=== PATIENT | female | born 1995 | race Caucasian/White ===

== ENCOUNTER 2020-01-10 15:20 | Emergency (ER) | payer OTHER ==
[~2020-01-10] VITALS: Ht 160 cm; Wt 58.5 kg
[2020-01-10 15:29] VITALS: BP 105/63
--- NOTE | 2020-01-10 16:00 | NUR ---
C/O VAGINAL BLEEDING AND CRAMPING WITH X THIS AM. A1, UNKNOWN WEEKS OF . DENIES N/V. PT ALERT AND AWAKE. AMBULATORY WITH STEADY GAIT. HX: ANEMIA, RHEUMATOID ARTHRITIS RX: HUMIRA, IRON
--- NOTE | 2020-01-10 16:00 | NUR ---
LMP APPROX AUGUST
--- NOTE | 2020-01-10 16:03 | NUR ---
Ultrasound at bedside.
--- NOTE | 2020-01-10 16:04 | NUR ---
us at bedside
[2020-01-10 16:17] LABS: BASOPHILS # (AUTO) 0.1 K/uL (0.00-0.22); BASOPHILS % (AUTO) 0.7 % (0.0-2.0); EOSINOPHILS # (AUTO) 0.6 K/uL (0-0.4); EOSINOPHILS % (AUTO) 4.8 % (0.0-4.0); HEMATOCRIT 32.9 % (36-48); HEMOGLOBIN 10.1 g/dL (12.0-16.0); LYMPHOCYTES # (AUTO) 3.3 K/uL (2.5-16.5); LYMPHOCYTES % (AUTO) 26.6 % (20.5-51.1); MEAN CORPUSCULAR HEMOGLOBIN 19 pg (27-31); MEAN CORPUSCULAR HGB CONC 31 g/dL (33-37); MEAN CORPUSCULAR VOLUME 62.7 fL (80-94); MONOCYTES # (AUTO) 0.7 K/uL (0.8-1.0); MONOCYTES % (AUTO) 5.8 % (1.7-9.3); NEUTROPHILS # (AUTO) 7.7 K/uL (1.8-7.7); NEUTROPHILS % (AUTO) 62.1 % (42.2-75.2); PLATELET COUNT (AUTO) 483 K/uL (140-450); RED BLOOD CELL COUNT(AUTO) 5.24 MIL/uL (4.20-5.40); WHITE BLOOD COUNT (AUTO) 12.4 K/uL (4.8-10.8)
[2020-01-10 16:18] LABS: BILIRUBIN,URINE NEGATIVE (NEGATIVE); BLOOD, URINE TRACE-I (NEGATIVE); COLOR,URINE YELLOW (YELLOW); LEUKOCYTE ESTERASE ,URINE 1+ (NEGATIVE); NITRITE, URINE NEGATIVE (NEGATIVE); UGLUCOSE NEGATIVE (NEGATIVE)
[2020-01-10 16:32] LABS: ALBUMIN 3.3 g/dL (3.4-5.0); ANION GAP 11.9 (8-16); CARBON DIOXIDE 26.8 mmol/L (21-32); CREATININE 0.6 mg/dL (0.6-1.3); POTASSIUM 3.7 mmol/L (3.5-5.1); TOTAL BILIRUBIN 0.5 mg/dL (0.0-1.0)
--- NOTE | 2020-01-10 16:39 | NUR ---
PT STATES SHE DOES NOT WANT ANYTHING FOR PAIN AT THIS TIME
[2020-01-10 17:51] LABS: APPEARANCE,URINE HAZY (CLEAR)
--- NOTE | 2020-01-10 17:52 | NUR ---
PENDING LAB RESULTS
[2020-01-10 17:55] LABS: RBC,URINE NONE SEEN /HPF (0-5); WBC,URINE 0-5 /HPF (0-5)
[2020-01-10 18:38] VITALS: BP 107/63
--- NOTE | 2020-01-10 18:38 | NUR ---
Patient discharged with v/s stable. Written and verbal after care instructions given and explained. Patient verbalized understanding. Ambulatory with steady gait. All questions addressed prior to discharge. Advised to follow up with PMD. PT GIVEN COPY OF US RESULTS AND LAB RESUTLS AND INSTRUCTED TO FOLLOW UP WITH OBGYN
== END 2020-01-10 18:38 | disposition home or self-care (01) ==
LOC: MED 15:20
DX: O20.8 Other hemorrhage in early pregnancy (principal); O26.891 Other specified pregnancy related conditions, first trimester; R10.9 Unspecified abdominal pain; D64.9 Anemia, unspecified; Z3A.08 8 weeks gestation of pregnancy
CPT/HCPCS: 36415; 76801; 80053; 81001; 81025; 84702; 85025; 87086; 99284; Q0092

== ENCOUNTER 2022-07-23 14:34 | Emergency (ER) | payer OTHER ==
[~2022-07-23] VITALS: Ht 157.5 cm; Wt 68.9 kg
[2022-07-23 14:47] VITALS: BP 118/67
[2022-07-23 17:19] LABS: APPEARANCE,URINE CLEAR (CLEAR); BILIRUBIN,URINE NEGATIVE (NEGATIVE); BLOOD, URINE NEGATIVE (NEGATIVE); COLOR,URINE YELLOW (YELLOW); LEUKOCYTE ESTERASE ,URINE 2+ (NEGATIVE); NITRITE, URINE NEGATIVE (NEGATIVE); UGLUCOSE NEGATIVE (NEGATIVE)
[2022-07-23 17:27] LABS: BASOPHILS # (AUTO) 0.1 K/uL (0.00-0.22); BASOPHILS % (AUTO) 0.6 % (0.0-2.0); EOSINOPHILS # (AUTO) 0.3 K/uL (0-0.4); EOSINOPHILS % (AUTO) 2.5 % (0.0-4.0); HEMATOCRIT 37.5 % (36-48); HEMOGLOBIN 12.8 g/dL (12.0-16.0); LYMPHOCYTES # (AUTO) 2.8 K/uL (2.5-16.5); LYMPHOCYTES % (AUTO) 21.6 % (20.5-51.1); MEAN CORPUSCULAR HEMOGLOBIN 26 pg (27-31); MEAN CORPUSCULAR HGB CONC 34 g/dL (33-37); MEAN CORPUSCULAR VOLUME 75.7 fL (80-94); MONOCYTES # (AUTO) 0.6 K/uL (0.8-1.0); MONOCYTES % (AUTO) 4.7 % (1.7-9.3); NEUTROPHILS # (AUTO) 9.1 K/uL (1.8-7.7); NEUTROPHILS % (AUTO) 70.6 % (42.2-75.2); PLATELET COUNT (AUTO) 451 K/uL (140-450); RED BLOOD CELL COUNT(AUTO) 4.96 MIL/uL (4.20-5.40); RED CELL DISTRIBUTION WIDTH 15.6 % (11.6-13.7); WHITE BLOOD COUNT (AUTO) 12.8 K/uL (4.8-10.8)
[2022-07-23 17:35] LABS: RBC,URINE 0-5 /HPF (0-5)
[2022-07-23 17:43] LABS: ANION GAP 14.6 (8-16); CARBON DIOXIDE 26.1 mmol/L (21-32); CREATININE 0.6 mg/dL (0.6-1.3); POTASSIUM 3.7 mmol/L (3.5-5.1)
--- NOTE | 2022-07-23 17:43 | NUR ---
PT REQUESTING US RESULTS, STATING THAT SHE DOESNT WANT TO WAIT FOR DC PAPERS. PT SEEN WALKING OUT OF ED
--- NOTE | 2022-07-23 17:43 | NUR ---
PATIENT ELOPED FROM FACILITY. DISCHARGE INSTRUCTIONS NOT GIVEN TO PATIENT. DR. BETANCOURT NOTIFIED.
== END 2022-07-23 17:43 | disposition left against medical advice (07) ==
LOC: MED 14:34
DX: O46.91 Antepartum hemorrhage, unspecified, first trimester (principal); Z3A.01 Less than 8 weeks gestation of pregnancy
CPT/HCPCS: 36415; 76801; 80048; 81001; 81025; 83690; 84702; 85025; 86870; 86886; 86900; 86901; 87086; 99284; Q0092